=== PATIENT | male | born 1970 | race Caucasian/White ===

== ENCOUNTER → 2017-05-04 | Outpatient (CLI) | payer BC ==
--- NOTE | 2017-05-05 10:26 | RADIOLOGY REPORT PS360 ---
US THYROID HISTORY: THYROID NODULES ORDERING PHYSICIAN: Wilfrido Jaramillo MD PATIENT AGE: 46 years COMPARISON: None FINDINGS: Right lobe: 4.8 x 2.1 x 2.5 cm. There is heterogeneous echogenicity. No definite discrete nodule is apparent Left lobe: 5.2 x 1.8 x 2.4 cm. There is heterogeneous echogenicity. It is difficult to identify discrete nodule. There was question of a nodule within the mid aspect of the left lobe which was reported on a outside ultrasound. This was the area targeted for the fine-needle aspiration. The isthmus is thickened at 7 mm. IMPRESSION: Heterogeneous enlargement of the thyroid gland consistent with goiter
== END ==
LOC: RAD 09:19 → LAB 09:19 → RAD 10:00
DX: D34 Benign neoplasm of thyroid gland (principal); E03.0 Congenital hypothyroidism with diffuse goiter